=== PATIENT | male | born 1945 | race Caucasian/White ===

== ENCOUNTER 2022-10-13 06:08 | Inpatient (IN) ==
--- NOTE | 2022-10-09 18:28 | XRay Report ---
HISTORY: Preop for laparoscopic cholecystectomy FINDINGS: There is a small right-sided pleural effusion causing blunting of the costophrenic sulcus. Above this there is minor atelectasis in the basilar segments of the right lower lobe. The diffuse infiltrate in the right lung seen on 09/15/22 has resolved and the pleural effusion is smaller at this time. The left lung is clear. The heart size is normal. There is no pulmonary vascular congestion. There are two surgical drains in the right upper quadrant. IMPRESSION: Resolved infiltrate in the right lung and improved right-sided pleural effusion Interpreted and Authenticated by: Yovanny Gimenez 10/09/22
--- NOTE | 2022-10-09 18:43 | EKG ---
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
[2022-10-09 18:46] LABS: Prothrombin Time 13.5 sec (11.9-14.5)
[~2022-10-13 06:08] MED LIST: CEFEPIME 2 GM VIAL IV SCH
[2022-10-13] MEDS ORDERED: ePHEDrine 50 MG/5 ML SYRINGE (ANEST) IV ONE (07:30)
[2022-10-13] MEDS ORDERED: PHENYLephrine 1 MG/10 ML SYRINGE (ANEST) ONE (07:30)
[2022-10-13] MEDS ORDERED: ROCURONIUM 10 MG/ML ML IV ONE (07:30)
[2022-10-13] MEDS ORDERED: fentaNYL 250 MCG/5 ML VIAL IV ONE (07:30)
[2022-10-13] MEDS ORDERED: PROPOFOL 200 MG/20 ML VIAL IV ONE (07:30)
[2022-10-13] MEDS ORDERED: EPINEPHrine 1 MG/ML VIAL ONE (07:30)
[2022-10-13] MEDS ORDERED: SUCCINYLCHOLINE 20 MG/ML ML IV ONE (07:30)
[2022-10-13] MEDS ORDERED: GLYCOPYRROLATE 0.2 MG/ML VIAL IV ONE (07:30)
[2022-10-13] MEDS ORDERED: ONDANSETRON 4 MG/2 ML VIAL ONE (07:30)
[2022-10-13] MEDS ORDERED: MAGNESIUM SULFATE 2 GM/50 ML BAG IV ONE (07:30)
[2022-10-13] MEDS ORDERED: DEXAMETHASONE 10 MG/ML VIAL ONE (07:30)
[2022-10-13] MEDS ORDERED: KETAMINE 50 MG/ML Syringe (ANEST) IV ONE (07:30)
[2022-10-13] MEDS ORDERED: LIDOCAINE HCL/PF 100 MG/5 ML SYRINGE IV ONE (07:30)
[2022-10-13] MEDS ORDERED: ACETAMINOPHEN 1,000 MG/100 ML BAG IV ONE (08:40)
[2022-10-13] MEDS ORDERED: MEPERIDINE 25 MG/ML VIAL IV PRN (08:40)
[2022-10-13] MEDS ORDERED: fentaNYL 100 MCG/2 ML VIAL IV PRN (08:40)
[2022-10-13] MEDS ORDERED: METHOCARBAMOL 1,000 MG/10 ML VIAL IV PRN (08:40)
[2022-10-13] MEDS ORDERED: IPRATROPIUM/ALBUTEROL 3 ML AMPUL.NEB NEB PRN (08:40)
[2022-10-13] MEDS ORDERED: LABETALOL 5 MG/ML ML IV PRN (08:40)
[2022-10-13] MEDS ORDERED: ONDANSETRON 4 MG/2 ML VIAL IV PRN (08:40)
[2022-10-13] MEDS ORDERED: LACTATED RINGERS 250 ML IV PRN (08:40)
[2022-10-13] MEDS ORDERED: HYDROmorphone 0.5 MG/0.5 ML SYRINGE IV PRN (08:40)
[2022-10-13] MEDS ORDERED: NALOXONE HCL 0.4 MG/ML VIAL IV PRN (08:40)
[2022-10-13] MEDS ORDERED: METOPROLOL TARTRATE 5 MG/5 ML VIAL IV PRN (08:40)
[2022-10-13] MEDS ORDERED: LACTATED RINGERS 1,000 ML IV SCH (08:45)
--- NOTE | 2022-10-13 09:04 | Brief Operative Note ---
Brief Operative Note Date of procedure: 10/13/22 Pre-op diagnosis: acute cholecystitis with cholelithiasis Post-op diagnosis: other (acute cholecystitis with cholelithiasis) Procedure: laparoscopic cholecystectomy Grafts/Implants: No (martir drain x2 ) Anesthesia: GETA Findings: acute severe inflammation of gallbladder with empyema acute and chronic inflammation of RUQ WITH ADHESIONS of liver to peritoneal surface Complications: none Surgeon: Shaheed Sarah Estimated blood loss (cc): 100 Specimens Removed/Pathology: other (gallbladder) Condition: stable Disposition: PACU
[2022-10-13] MEDS: 0.9 % SODIUM CHLORIDE 1,000 ML IV SCH ×3 (10:41→22:18)
[2022-10-13] MEDS: HYDROmorphone 1 MG/ML SYRINGE IV PRN (11:18)
[2022-10-13] MEDS: PIPERACILLIN SODIUM/TAZOBACTAM 3.375 GM in DEXTROSE 5% IN WATER 50 ML IV SCH ×2 (12:18→17:17)
[2022-10-13] MEDS: 0.9 % SODIUM CHLORIDE 10 ML SYRINGE IV SCH ×2 (12:51→20:14)
[2022-10-13] MEDS: ACETAMINOPHEN 1,000 MG/100 ML BAG IV SCH ×2 (14:24→20:12)
[2022-10-13] MEDS: FAMOTIDINE 20 MG TABLET PO SCH (20:13)
[2022-10-13] MEDS: DOCUSATE SODIUM 100 MG CAPSULE PO SCH (20:13)
[2022-10-14] MEDS: PIPERACILLIN SODIUM/TAZOBACTAM 3.375 GM in DEXTROSE 5% IN WATER 50 ML IV SCH ×5 (00:14→23:42)
[2022-10-14] MEDS: HYDROmorphone 1 MG/ML SYRINGE IV PRN ×3 (01:03→18:45)
[2022-10-14] MEDS: ACETAMINOPHEN 1,000 MG/100 ML BAG IV SCH ×4 (02:37→21:26)
[2022-10-14] MEDS: 0.9 % SODIUM CHLORIDE 10 ML SYRINGE IV SCH ×3 (04:56→21:32)
[2022-10-14] MEDS: 0.9 % SODIUM CHLORIDE 1,000 ML IV SCH ×4 (04:56→22:44)
[2022-10-14 06:34] LABS: Basophils # (Auto) 0.02 K/mcL (0.00-0.30); Basophils % (Auto) 0.1 % (0.0-2.0); Eosinophils # (Auto) 0 K/mcL (0.00-0.70); Eosinophils % (Auto) 0 % (0.0-7.0); Hematocrit 29.3 % (40.1-51.0); Hemoglobin 9.5 g/dL (13.7-17.5); Lymphocytes # (Auto) 0.54 K/mcL (1.50-4.80); Mean Cell Volume 95.1 fL (80.0-100.0); Mean Corpuscular HGB Conc 32.4 g/dL (31.0-36.0); Mean Platelet Volume 10.8 fL (8.8-12.5); Monocytes # (Auto) 0.49 K/mcL (0.10-0.90); Monocytes % (Auto) 3.7 % (1.0-12.0); Neutrophils % (Auto) 91.4 % (38.0-78.0); Platelet Count 199 K/mcL (140-440); RBC 3.08 M/mcL (4.63-6.08); WBC 13.4 K/mcL (4.5-11.0)
[2022-10-14 06:54] LABS: ALT/SGPT 47 U/L (<40); AST/SGOT 35 U/L (<40); Albumin 3.1 gm/dL (3.2-5.2); Albumin/Globulin Ratio 1.1 (1.0-2.3); Alkaline Phosphatase 107 U/L (39-117); Bilirubin,Direct < 0.2 mg/dL (0-0.3); Bilirubin,Total 0.3 mg/dL (0.1-1.0); Blood Urea Nitrogen 14 mg/dL (8-23); Calcium 7.9 mg/dL (8.6-10.4); Carbon Dioxide 21 mmol/L (22-30); Chloride 100 mmol/L (96-108); Globulin 2.7 gm/dL (2.2-3.7); Glomerular Filtration Rate 92; Glucose 135 mg/dL (70-105); Lactate Dehydrogenase 165 U/L (135-225); Triglycerides 49 mg/dL (<150); Uric Acid 2.5 mg/dL (2.5-8.0)
[2022-10-14] MEDS: DOCUSATE SODIUM 100 MG CAPSULE PO SCH ×2 (10:28→21:25)
[2022-10-14] MEDS: FAMOTIDINE 20 MG TABLET PO SCH ×2 (10:28→21:25)
--- NOTE | 2022-10-14 14:14 | General Surgery Progress Note ---
SUBJECTIVE Subjective Patient information: Note initiated : 10/14/22 at 2:11 pm Service Date, if different from initiated Date: [] Patient: Ron Reynolds 77 y/o M admitted on 10/13/22 for Laparoscopic Cholecystectomy. Chief Complaint: [] Principal diagnosis: Acute cholecystitis with empyema of gallbladder Interval history: Patient is doing well. White blood count is down to 13.4. Hemoglobin and hematocrit are stable. BUN/creatinine are normal Constitutional Vitals: Vital Signs Temp Pulse Resp BP Pulse Ox O2 Del Method O2 Flow Rate 97.9 F 65 16 130/65 96 Room Air 1 10/14/22 07:42 10/14/22 07:42 10/14/22 07:42 10/14/22 07:42 10/14/22 07:42 10/14/22 07:42 10/14/22 04:00 Period Temp Pulse Resp BP Sys/Marrero Pulse Ox O2 Del Method O2 Flow Rate Last 24 Hr 97.6 F-98.8 F 53-70 16-16 98-130/53-68 95-98 Room Air-Room Air 1 Intake and Output 10/14/22 10/14/22 10/14/22 03:59 11:59 19:59 Intake Total 1250 1150 600 Output Total 975 1650 Balance 275 1150 -1050 Weight 177 lb 177 lb Patient Weight 10/15/22 03:59 Weight 177 lb Intake & Output: Intake & Output 10/14/22 10/14/22 10/14/22 03:59 11:59 19:59 Intake Total 1250 1150 600 Output Total 975 1650 Balance 275 1150 -1050 Weight 177 lb 177 lb Intake: IV 1250 1150 Sodium Chloride 0.9% 1,000 ml @ 1000 1000 100 mls/hr IV .Q10H GALINA Rx#: [id number] Zosyn 3.375 gm In Dextrose 5% 50 50 in Water 50 ml @ 100 mls/hr IV Q6H GALINA Rx#:[id number] Oral 600 Output: Drainage 50 OSCAR B 50 Drainage 75 200 OSCAR A 25 100 OSCAR B 50 100 Urine Catheter Amount 600 1200 Void Amount 250 250 Other: Meal Lunch Percent of Meal Consumed 100% Feeding Ability Independent Urine Appearance Clear Clear Uretheral (De Paz) Clear Clear Urine Color Dark Yellow Yellow Uretheral (De Paz) Yellow Yellow Urine Odor Strong Uretheral ([place] Paz) Normal Eye Eye exam: Present PERRL; Absent scleral icterus ENT ENT exam: Present normal exam and normal oropharynx Neck Neck exam: Present normal inspection; Absent tenderness Respiratory Respiratory exam: Present normal respiratory exam and CTAB GI/Abdominal GI/Abdominal exam: Present normal bowel sounds, soft and tenderness (Mild tenderness around port sites); Absent distended Extremities Exam Extremities exam: Present normal inspection and neurovascular intact Neurological Exam Neurological exam: Present alert and oriented X3; Absent motor sensory deficit Psychiatric Psychiatric exam: Present normal affect and normal mood A/P Assessment and plan (1) Acute cholecystitis: Status: Acute (2) History of hypertension: Status: Acute Plan Continue present therapy and antibiotics Tentative discharge on 16 October 2022 Time Spent With Patient Time: Total time spent is greater than 50% in coordination of care (as documented) at patient's floor/unit and/or counseling patient:
[2022-10-14] MEDS: TAMSULOSIN 0.4 MG CAPSULE PO SCH (21:25)
[2022-10-15] MEDS: 0.9 % SODIUM CHLORIDE 1,000 ML IV SCH ×2 (01:53→11:01)
[2022-10-15] MEDS: ACETAMINOPHEN 1,000 MG/100 ML BAG IV SCH ×4 (03:14→21:03)
[2022-10-15] MEDS: PIPERACILLIN SODIUM/TAZOBACTAM 3.375 GM in DEXTROSE 5% IN WATER 50 ML IV SCH ×4 (05:19→23:21)
[2022-10-15] MEDS: 0.9 % SODIUM CHLORIDE 10 ML SYRINGE IV SCH ×3 (05:19→21:04)
[2022-10-15] MEDS: DOCUSATE SODIUM 100 MG CAPSULE PO SCH ×2 (08:58→21:04)
[2022-10-15] MEDS: FAMOTIDINE 20 MG TABLET PO SCH ×2 (08:58→21:04)
[2022-10-15 13:09] LABS: ALT/SGPT 46 U/L (<40); AST/SGOT 31 U/L (<40); Albumin 3.2 gm/dL (3.2-5.2); Albumin/Globulin Ratio 1.1 (1.0-2.3); Alkaline Phosphatase 93 U/L (39-117); Bilirubin,Direct < 0.2 mg/dL (0-0.3); Bilirubin,Total 0.3 mg/dL (0.1-1.0); Blood Urea Nitrogen 10 mg/dL (8-23); Calcium 8.2 mg/dL (8.6-10.4); Carbon Dioxide 26 mmol/L (22-30); Chloride 102 mmol/L (96-108); Globulin 2.8 gm/dL (2.2-3.7); Glomerular Filtration Rate 87; Glucose 131 mg/dL (70-105); Lactate Dehydrogenase 181 U/L (135-225); Phosphorous 2.2 mg/dL (2.5-4.5); Triglycerides 102 mg/dL (<150); Uric Acid 2.2 mg/dL (2.5-8.0)
[2022-10-15] MEDS: HYDROmorphone 1 MG/ML SYRINGE IV PRN (13:40)
[2022-10-15] MEDS: TAMSULOSIN 0.4 MG CAPSULE PO SCH (21:04)
[2022-10-16] MEDS: ACETAMINOPHEN 1,000 MG/100 ML BAG IV SCH ×2 (03:26→08:52)
[2022-10-16] MEDS: PIPERACILLIN SODIUM/TAZOBACTAM 3.375 GM in DEXTROSE 5% IN WATER 50 ML IV SCH ×2 (05:28→11:41)
[2022-10-16] MEDS: 0.9 % SODIUM CHLORIDE 10 ML SYRINGE IV SCH (05:30)
[2022-10-16 06:43] LABS: Basophils # (Auto) 0.05 K/mcL (0.00-0.30); Basophils % (Auto) 0.6 % (0.0-2.0); Eosinophils # (Auto) 0.35 K/mcL (0.00-0.70); Eosinophils % (Auto) 4.4 % (0.0-7.0); Hematocrit 33.2 % (40.1-51.0); Hemoglobin 10.8 g/dL (13.7-17.5); Lymphocytes # (Auto) 0.98 K/mcL (1.50-4.80); Lymphocytes % (Auto) 12.4 % (15.5-49.0); Mean Corpuscular HGB Conc 32.5 g/dL (31.0-36.0); Mean Platelet Volume 10.7 fL (8.8-12.5); Monocytes # (Auto) 0.44 K/mcL (0.10-0.90); Monocytes % (Auto) 5.6 % (1.0-12.0); Neutrophils % (Auto) 76.5 % (38.0-78.0); Platelet Count 209 K/mcL (140-440); RBC 3.46 M/mcL (4.63-6.08); Red Cell Distribution Width 14.2 % (11.5-14.5); WBC 7.9 K/mcL (4.5-11.0)
[2022-10-16 07:43] LABS: ALT/SGPT 58 U/L (<40); AST/SGOT 36 U/L (<40); Albumin 3.3 gm/dL (3.2-5.2); Alkaline Phosphatase 116 U/L (39-117); Bilirubin,Direct < 0.2 mg/dL (0-0.3); Bilirubin,Total 0.4 mg/dL (0.1-1.0); Blood Urea Nitrogen 9 mg/dL (8-23); Calcium 8.6 mg/dL (8.6-10.4); Carbon Dioxide 23 mmol/L (22-30); Chloride 102 mmol/L (96-108); Globulin 3.2 gm/dL (2.2-3.7); Glomerular Filtration Rate 98; Glucose 100 mg/dL (70-105); Lactate Dehydrogenase 274 U/L (135-225); Phosphorous 2.4 mg/dL (2.5-4.5); Triglycerides 88 mg/dL (<150); Uric Acid 1.8 mg/dL (2.5-8.0)
[2022-10-16] MEDS: FAMOTIDINE 20 MG TABLET PO SCH (08:51)
[2022-10-16] MEDS: DOCUSATE SODIUM 100 MG CAPSULE PO SCH (09:26)
--- NOTE | 2022-10-16 14:02 | Discharge Summary ---
Discharge Provider Provider IMPORTANT FOLLOW-UP INFORMATION FOR PCP: Patient information: Note initiated : 10/16/22 at 2:01 pm Service Date, if different from initiated Date: [] Patient: Ron Reynolds 77 y/o M admitted on 10/13/22 for Laparoscopic Cholecystectomy. Chief Complaint: [] Date of admission: 10/13/22 09:51 Discharge date: 10/16/22 Primary care physician: Lina Castillo Admitting clinician: Shaheed Sarah Attending physician on admission: Shaheed Sarah Attending physician on discharge: Shaheed Sarah Discharging clinician: Shaheed Sarah COURSE Hospital Course Hospital course: 77-year-old male with history of acute cholecystitis associated with recent placement of an endoluminal graft for aortic graft leak. The patient had placement of a percutaneous transhepatic catheter for decompression of the gallbladder. He had leak of bile around the transhepatic catheter so another catheter was placed in the perihepatic space for bile leak. The catheter had been in place for multiple. The patient remains symptomatic with acute cholecystitis and it was felt that it would be better to proceed with cholecystectomy. Laparoscopic cholecystectomy was performed on 13 October 2022. He was found to have severe empyema of the gallbladder with cystic duct obstruction. He has been treated with intravenous antibiotics. His white count has reduced to 7.9 and his hemoglobin is stable. Patient is clinically stable. He is discharged home with his drains intact and will have follow-up in the office in 3 weeks. Discharge diagnosis: Empyema of gallbladder Secondary discharge diagnosis: Cholelithiasis with cholecystitis Hypertension History of AAA endoluminal repair Reason for admission: Postoperative cholecystectomy Procedures: Laparoscopic cholecystectomy with removal of trans hepatic biliary catheter and perihepatic catheter Pertinent studies/significant findings: None Complications: None Time Spent with Patient Time attestation: Total time spent providing and/or coordinating discharge services: Time spent: Less than 30 minutes Physical Examination Vital Signs Vital signs: Temp Pulse Resp BP Pulse Ox O2 Del Method O2 Flow Rate 97.9 F 81 16 132/72 100 Room Air 1 10/16/22 12:00 10/16/22 12:00 10/16/22 12:00 10/16/22 12:00 10/16/22 12:00 10/16/22 12:00 10/14/22 04:00 General physical appearance General physical exam: well developed, well nourished, no distress, no pain and chronically ill Eyes Eye exam: PERRL and normal ocular movement; negative icteric ENT ENT exam: normal mucosa and no congestion Head Head exam IM: Present atraumatic, normal inspection and normocephalic Neck Neck exam: no masses, no bruits, trachea midline, no lymphadenopathy and no venous distension Cardiovascular Cardiovascular exam IM: Present normal rate and rhythm, RRR, +S1, +S2 and systolic murmur; Absent JVD Respiratory Respiratory exam: normal expansion, normal respiratory effort and clear to auscultation Abdomen Abdomen: Present soft, tender (Mild tenderness around port sites) and surgical scars (Mild blood around OSCAR drains); Absent distended Integumentary Integumentary: Present no rash, no growths and no abnormal pigmentation Neurologic Neurologic: Present normal coordination and normal sensation Musculoskeletal Musculoskeletal: Present normal gait and normal posture Psychiatric Psychiatric: Present oriented to time, oriented to person, oriented to place, speech is normal and memory intact Discharge Plan Patient/Caregiver Discharge Instructions Activity: increase activity as tolerated Diet: Regular Diet and Low Fat Instructions: Laparoscopic Cholecystectomy (GEN) Prescriptions: Continued sodium chloride 0.9 % (flush) [Normal Saline Flush] Syringe 10 ml IV QDAY 10 Days Qty: 10 1RF Rx Instructions: Flush biliary catheter daily. Centrum Silver 0.4 mg-300 mcg- 250 mcg tablet 1 tab PO QDAY oxycodone 5 mg capsule 5 mg PO Q6H PRN (Reason: pain) Qty: 40 0RF lisinopril 10 mg tablet See Rx Instructions .ROUTE .COMPLEX Rx Instructions: ON HOLD UNLESS OVER 140 furosemide 40 mg tablet 40 mg PO DAILY ascorbic acid (vitamin C) 500 mg PO DAILY omega-3 fatty acids [Fish Oil] 1,000 mg PO DAILY carvedilol 25 mg Tablet 25 mg PO BID amlodipine 10 mg Tablet 10 mg PO DAILY aspirin 81 mg Tablet 81 mg PO DAILY sulfamethoxazole-trimethoprim 800-160 mg tablet 1 tab PO BID atorvastatin 40 mg tablet 40 mg PO QDAY metformin 1,000 mg tablet 1,000 mg PO QAM Rx Instructions: pt only taking daily Prescription drug monitoring program results: PDMP not reviewed Follow Up Plan Follow up with: Lina Castillo MD [Primary Care Provider] - (Follow up as needed) Piter Gamble MD [Physician] - None Shaheed Sarah MD [Physician] - 11/06/22 8:45 am Patient Disposition: Home, Self-Care Prognosis: Good Rehab Potential: Good I certify that the patient requires SNF services: No Overall status at discharge: patient is progressing back to baseline Discharge Orders: Discharge Order (Routine); Ordered 10/16/22 Ordered By: Shaheed Sarah Pending Pending Pending: Resuscitation Status Resuscitate (Full Code) Diet Regular Diet Start Sat Oct 14 0800 Docusate Sodium (Docusate Sodium 100 Mg Capsule) 100 mg PO BID [facility] Admin: 10/16/22 09:26 Dose: Not Given Documented By: [email or web address] Admin: 10/15/22 21:04 Dose: Not Given Documented By: Admin: 10/15/22 08:58 Dose: 100 mg Documented By: Admin: 10/14/22 21:25 Dose: Not Given Documented By: Admin: 10/14/22 10:28 Dose: 100 mg Documented By: Admin: 10/13/22 20:13 Dose: Not Given Documented By: RICHARD Famotidine (Famotidine 20 Mg Tablet) 20 mg PO BID [facility] Admin: 10/16/22 08:51 Dose: 20 mg Documented By: [email or web address] Admin: 10/15/22 21:04 Dose: 20 mg Documented By: Admin: 10/15/22 08:58 Dose: 20 mg Documented By: Admin: 10/14/22 21:25 Dose: 20 mg Documented By: Admin: 10/14/22 10:28 Dose: 20 mg Documented By: Admin: 10/13/22 20:13 Dose: 20 mg Documented By: RICHARD Hydromorphone HCl (Hydromorphone 1 Mg/Ml Syringe) 1 mg IV Q2HP PRN; Protocol PRN Reason: Per Pain Protocol Last Admin: 10/15/22 13:40 Dose: 1 mg Documented By: Admin: 10/14/22 18:45 Dose: 1 mg Documented By: Admin: 10/14/22 15:53 Dose: 1 mg Documented By: Admin: 10/14/22 01:03 Dose: 1 mg Documented By: Admin: 10/13/22 11:18 Dose: 1 mg Documented By: ROBERTO Acetaminophen (Ofirmev) 1,000 mg in 100 mls @ 200 mls/hr IV Q6H GALINA Last Admin: 10/16/22 08:52 Dose: 200 mls/hr Documented By: [email or web address] Infusion: 10/16/22 04:00 Dose: 0 mls/hr Documented By: Admin: 10/16/22 03:26 Dose: 200 mls/hr Documented By: Infusion: 10/15/22 21:45 Dose: 0 mls/hr Documented By: Admin: 10/15/22 21:03 Dose: 200 mls/hr Documented By: Infusion: 10/15/22 15:45 Dose: 200 mls/hr Documented By: [email or web address] Admin: 10/15/22 15:15 Dose: 200 mls/hr Documented By: [email or web address] Infusion: 10/15/22 09:28 Dose: 200 mls/hr Documented By: [id number] Admin: 10/15/22 08:58 Dose: 200 mls/hr Documented By: [email or web address] Infusion: 10/15/22 03:45 Dose: 0 mls/hr Documented By: Admin: 10/15/22 03:14 Dose: 200 mls/hr Documented By: Infusion: 10/14/22 22:00 Dose: 0 mls/hr Documented By: Admin: 10/14/22 21:26 Dose: 200 mls/hr Documented By: Infusion: 10/14/22 16:17 Dose: 200 mls/hr Documented By: [email or web address] Admin: 10/14/22 15:47 Dose: 200 mls/hr Documented By: [id number] Infusion: 10/14/22 11:05 Dose: 200 mls/hr Documented By: [id number] Admin: 10/14/22 10:35 Dose: 200 mls/hr Documented By: [email or web address] Infusion: 10/14/22 03:10 Dose: 0 mls/hr Documented By: Admin: 10/14/22 02:37 Dose: 200 mls/hr Documented By: Infusion: 10/13/22 20:45 Dose: 0 mls/hr Documented By: Admin: 10/13/22 20:12 Dose: 200 mls/hr Documented By: Infusion: 10/13/22 14:56 Dose: 0 mls/hr Documented By: Admin: 10/13/22 14:24 Dose: 200 mls/hr Documented By: ROBERTO Piperacillin Sod/Tazobactam (Sod 3.375 gm/ Dextrose) 50 mls @ 100 mls/hr IV Q6H GALINA; Protocol Last Admin: 10/16/22 11:41 Dose: 100 mls/hr Documented By: Infusion: 10/16/22 05:58 Dose: 100 mls/hr Documented By: [email or web address] Admin: 10/16/22 05:28 Dose: 100 mls/hr Documented By: Infusion: 10/15/22 23:55 Dose: 0 mls/hr Documented By: Admin: 10/15/22 23:21 Dose: 100 mls/hr Documented By: Infusion: 10/15/22 17:45 Dose: 0 mls/hr Documented By: Admin: 10/15/22 17:15 Dose: 100 mls/hr Documented By: [id number] Infusion: 10/15/22 12:06 Dose: 100 mls/hr Documented By: [id number] Admin: 10/15/22 11:36 Dose: 100 mls/hr Documented By: [email or web address] Infusion: 10/15/22 07:33 Dose: 100 mls/hr Documented By: [email or web address] Admin: 10/15/22 05:19 Dose: 100 mls/hr Documented By: Infusion: 10/15/22 00:15 Dose: 0 mls/hr Documented By: Admin: 10/14/22 23:42 Dose: 100 mls/hr Documented By: Infusion: 10/14/22 19:30 Dose: 0 mls/hr Documented By: Admin: 10/14/22 18:50 Dose: 100 mls/hr Documented By: Infusion: 10/14/22 13:35 Dose: 100 mls/hr Documented By: [email or web address] Admin: 10/14/22 13:05 Dose: 100 mls/hr Documented By: [id number] Infusion: 10/14/22 06:15 Dose: 100 mls/hr Documented By: [email or web address] Admin: 10/14/22 05:45 Dose: 100 mls/hr Documented By: Infusion: 10/14/22 00:45 Dose: 0 mls/hr Documented By: Admin: 10/14/22 00:14 Dose: 100 mls/hr Documented By: Infusion: 10/13/22 17:46 Dose: 0 mls/hr Documented By: Admin: 10/13/22 17:17 Dose: 100 mls/hr Documented By: Infusion: 10/13/22 12:50 Dose: 0 mls/hr Documented By: Admin: 10/13/22 12:18 Dose: 100 mls/hr Documented By: ROBERTO Sodium Chloride (0.9 % Sodium Chloride 10 Ml Syringe) 10 ml IV Q8 [facility] Last Admin: 10/16/22 05:30 Dose: 10 ml Documented By: Admin: 10/15/22 21:04 Dose: 10 ml Documented By: Admin: 10/15/22 15:15 Dose: 10 ml Documented By: Admin: 10/15/22 05:19 Dose: Not Given Documented By: Admin: 10/14/22 21:32 Dose: Not Given Documented By: Admin: 10/14/22 15:26 Dose: Not Given Documented By: Admin: 10/14/22 04:56 Dose: Not Given Documented By: Admin: 10/13/22 20:14 Dose: 10 ml Documented By: Admin: 10/13/22 12:51 Dose: Not Given Documented By: ROBERTO Tamsulosin HCl (Tamsulosin 0.4 Mg Capsule) 0.4 mg PO HS [facility] Last Admin: 10/15/22 21:04 Dose: 0.4 mg Documented By: Admin: 10/14/22 21:25 Dose: 0.4 mg Documented By: [email or web address] Shift Summary 10/16/22 01:58 Shift Summary by Patric Park Pt has not slept much again tonight - did nap a little - currently up in chair @ bedside. He is voiding QS into toilet, and per urinal - Flomax started yesterday. No BM tonight - BM yesterday. No N/V. ABD pain has been min - well controlled w/ scheduled IV OFIRMEV - no PRN med required as yet this shift. ABD drain sites dressings C,D,I. 2x OSCAR to ABD - bile stained fluid out. Pt (I) in bed, and in RM - gait stable w/o device. RT F/A saline lock flushed & patent. VS - WNL on R.A.. He is A&O x4, calm, pleasant, & cooperative. Pt will likely D/C home later today. Initialized on 10/16/22 01:58 - END OF NOTE
--- NOTE | 2022-10-23 08:46 | Operative Note ---
DATE OF OPERATION: 10/13/2022 DATE OF PROCEDURE: 10/13/2022 PREOPERATIVE DIAGNOSIS: Acute cholecystitis with cholelithiasis. POSTOPERATIVE DIAGNOSES: Acute cholecystitis with cholelithiasis and empyema of the gallbladder. SURGEON: Shaheed Sarah M.D. FINDINGS: Acute and chronic inflammation of the right upper quadrant with inflammatory adhesions of the entire exposed surface of the liver to the peritoneum and diaphragm in the right upper quadrant. INDICATIONS: The patient is status post percutaneous drainage of the gallbladder with a transhepatic approach. He had acute cholecystitis and impending sepsis immediately after having an endovascular prosthesis placed. Because of the infection, it was elected to do a percutaneous transhepatic cholecystostomy to decompress the gallbladder and to try to prevent spread of infection. The patient was still having significant symptoms. He was scheduled to be seen at a tertiary center to have cholecystectomy, but this was not scheduled until October. Because of this, it was elected to do the cholecystectomy more urgently. Under general anesthesia, the abdomen was prepped and draped in a sterile field. The 2 drains in the right upper quadrant were prepped into the field and the sutures were cut to make extraction of the drains easy. Timeout procedure was carried out as per protocol. Supraumbilical midline incision was made and Veress needle was inserted. The abdomen was insufflated with 2 liters of CO2. A 12 mm port was placed. A laparoscope was placed. Under videoscopic guidance, there was major severe inflammation of the gallbladder with thickening of the gallbladder and acute and chronic inflammation of the entire right upper quadrant with adhesion of the peritoneal surfaces of the liver to the parietal peritoneum and the diaphragm. An attempt was made to decompress the gallbladder, but the infection of the gallbladder was a very thick nonunion aspirated of all empyema. The gallbladder was grasped and positioned. With blunt dissection, the cystic duct and cystic artery branch were definitively identified. Cystic duct was transected at the junction with the gallbladder using Endo stapler. Cystic artery branches were clipped with 3 clips on the wall of the gallbladder and divided. Using all blunt dissection, the gallbladder was dissected from the hepatic bed uneventfully. When the opening for the posterior entrance of the catheter into the wall of the gallbladder was encountered the drains were pulled. The pseudo epithelialized channel was well identified and was clipped with multiple clips and divided. The gallbladder was then freed from the infrahepatic space. Irrigation was carried out. There was significant oozing from the bed of the gallbladder, so hemostasis was achieved. One drain was placed in the subhepatic space and then another drain was gently placed between the liver and the peritoneal surface along the superior aspect to make sure that was adequately drained. The patient tolerated the procedure well. Sponge, instrument, and blade counts were verified as correct. CO2 was allowed to escape from the abdomen. The fascia at the umbilicus was closed with 0 Monocryl. The skin incisions of the two 10 mm ports were closed with oliver. The drains were secured with 2-0 nylon. Dressings were placed. The patient tolerated the procedure well. He was awakened and transferred to the postanesthetic care unit in satisfactory condition. LCS:[email or web address] Job ID: [id number] Doc ID: [id number] Shaheed Sarah M.D.
== END 2022-10-16 15:15 | disposition home or self-care (01) | DRG 419 ==
LOC: SUR 06:08 → MEDSUR 09:50
PROVIDERS: ADMIT Family Medicine Adult Medicine; ATTEND Family Medicine Adult Medicine